=== PATIENT | male | born 1965 | race Caucasian/White ===

== ENCOUNTER → 2017-03-20 | Outpatient (CLI) | payer MEDICARE ==
[~2017-03-20] MED LIST: ASPIR 8181 MG PO; ASPIRIN325 MG PO; CRESTOR 10 MG T10 MG PO; EFFEXOR XR 150150 MG PO; HYDROCHLOROTHIA25 MG PO; ISOSORBIDE PO; LISINOPRIL20 MG PO; METOPROLOL SUCC25 MG PO; NITROGLYCERIN0.4 MG SL; NORCO 7.5-3251 EACH PO; NORVASC 5 MG TAB5 MG PO; PLAVIX75 MG PO; RABEPRAZOLE SOD20 MG PO; RANEXA500 MG PO
== END ==
LOC: CT 03-12 11:30
DX: R19.00 Intra-abdominal and pelvic swelling, mass and lump, unspecified site (principal); K76.0 Fatty (change of) liver, not elsewhere classified
CPT/HCPCS: J7050; Q9962

== ENCOUNTER 2021-09-27 16:59 | Emergency (ER) | payer OTHER ==
[~2021-09-27 16:59] MED LIST changes: +ELAVIL 25 MG TA25 MG PO; +LORATADINE10 MG PO; +VENTOLIN/PROVE0.5 ML INH; +ZOFRAN4 MG PO
== END 2021-09-27 19:30 | disposition left against medical advice (07) ==
LOC: ER1 16:59
DX: R10.814 Left lower quadrant abdominal tenderness (principal); Z90.49 Acquired absence of other specified parts of digestive tract; Z87.891 Personal history of nicotine dependence; Z88.0 Allergy status to penicillin
CPT/HCPCS: 99283

== ENCOUNTER 2021-10-10 08:26 | Emergency (ER) | payer OTHER ==
[2021-10-10 09:56] LABS: HEMOGLOBIN 13.4 gm/dl (14.0-17.5); RED BLOOD COUNT 4.54 M/UL (4.20-5.50); WHITE BLOOD COUNT 6.7 K/UL (4.5-11.0)
[2021-10-10 10:18] LABS: BUN/CREATININE RATIO 12 (0-10)
[2021-10-10] MEDS ORDERED: HYDROCODON-ACE1 EAC4 PO (11:56)
== END 2021-10-10 12:16 | disposition home or self-care (01) ==
LOC: ER1 08:26
PROVIDERS: Student in an Organized Health Care Education/Training Program
DX: K40.90 Unilateral inguinal hernia, without obstruction or gangrene, not specified as recurrent (principal); Z88.0 Allergy status to penicillin; Z87.891 Personal history of nicotine dependence
CPT/HCPCS: 80053; 83605; 85025; 96374; 99284; J2270; Q9967

== ENCOUNTER → 2021-11-14 | Day surgery (SDC) | payer OTHER ==
[~2021-11-14] MED LIST changes: +HYDROCODON-ACE1 EAC4 PO; +PROTONIX 40 MG40 MG PO
== END | disposition home or self-care (01) ==
LOC: OR 06:01
DX: K40.90 Unilateral inguinal hernia, without obstruction or gangrene, not specified as recurrent (principal); I25.10 Atherosclerotic heart disease of native coronary artery without angina pectoris; I10 Essential (primary) hypertension; Z98.84 Bariatric surgery status; Z87.891 Personal history of nicotine dependence; Z20.822 Contact with and (suspected) exposure to COVID-19
CPT/HCPCS: 93005; C1781; J0690; J1100; J2001; J2250; J2405; J2704; J2710; J3010; J3370; J7030; J7120